=== PATIENT | male | born 1990 | race Caucasian/White ===

== ENCOUNTER 2017-04-25 04:58 | Emergency (ER) | payer OTHER ==
[~2017-04-25] VITALS: Ht 175.3 cm; Wt 77.1 kg
--- NOTE | 2017-04-25 05:37 | NUR ---
Pt states he has rt eye pain since last night. He believes he may have had an eyelash fall into his eye, and has been rubbing/scratching his eye ever since, thereby increasing the irritation.
--- NOTE | 2017-04-25 05:48 | NUR ---
Dr Recinos at bedside for MSE.
[2017-04-25] MEDS ORDERED: TETRACAINE HCL 0.5% OPHT DROP 2 ML BOTTLE OP ONE (06:00)
[2017-04-25] MEDS ORDERED: FLUORESCEIN SODIUM 1 MG STRIP OP ONE (06:00)
[2017-04-25] MEDS ORDERED: TETRACAINE HCL 0.5% OPHT DROP 2 ML BOTTLE ONE (06:08)
[2017-04-25] MEDS ORDERED: FLUORESCEIN SODIUM 1 MG STRIP ONE (06:08)
[2017-04-25] MEDS ORDERED: CYCLOPENTOLATE 1% OPHT DROP 2 ML BOTTLE OP ONE (06:30)
[2017-04-25] MEDS ORDERED: CYCLOPENTOLATE 1% OPHT DROP 2 ML BOTTLE ONE (06:49)
--- NOTE | 2017-04-25 06:54 | NUR ---
Patient discharged to home in stable conditon. Written and verbal after care instructions given. Patient verbalizes understanding of instructions. Pt ambulated w/ steady gait. Pt took all belongings.
[2017-04-25 06:55] VITALS: BP 125/67
== END 2017-04-25 06:56 | disposition home or self-care (01) ==
LOC: ER 05:08
DX: S05.01XA Injury of conjunctiva and corneal abrasion without foreign body, right eye, initial encounter (principal); X58.XXXA Exposure to other specified factors, initial encounter; Y93.89 Activity, other specified; Y92.89 Other specified places as the place of occurrence of the external cause; Y99.8 Other external cause status
CPT/HCPCS: 99283; A4663; J7040